=== PATIENT | male | born 1980 | race Caucasian/White ===

== ENCOUNTER 2017-04-23 23:26 | Emergency (ER) | payer SELFPAY ==
[~2017-04-23] VITALS: Ht 177.8 cm; Wt 75.0 kg
[~2017-04-23 23:26] MED LIST: BACTRIM DS1 TAB PO; DENIES CURRENT MEDS; DOXYCYCL HYC100 MG PO; FLEXERIL OR; KEFLEX500 M1 PO; LORTAB5 OR; NAPROSYN500 MG OR; NAPROXEN500 MG OR; NO; NO HOME MEDS; PERCOCET 5/325M1 TAB OR; PREVACID30 M1 PO; SILVADENE1 % EX; ULTRAM50 MG OR; VIBRAMYCIN100 M2 PO
[2017-04-24 00:05] LABS: HEMATOCRIT 43.6 % (39.0-50.0); HEMOGLOBIN 15.1 g/dl (14.0-18.0); IMMATURE GRANULOCYTES 0.3 % (0.0-1.0); MEAN CELL VOLUME 86.9 fL CALC (80.0-100.0); MEAN CORPUSCULAR HGB 30.1 pG CALC (26.0-32.0); MEAN CORPUSCULAR HGB CONC 34.6 g/L CALC (32.0-36.0); NEUT# 6.59 thou/uL (1.82-7.42); RED BLOOD COUNT 5.02 mill/uL (4.70-6.10); RED CELL DISTRI WIDTH 12.5 % (11.5-15.5)
[2017-04-24 00:45] LABS: ALKALINE PHOSPHATASE 79 u/l (38-126); ANION GAP 21 (6-22 (CALC)); BILIRUBIN, TOTAL 0.9 mg/dL (0.0-1.4); BUN 14 mg/dL (9-20); BUN/CREATININE RATIO 16 (12-20 (CALC)); CALCIUM 9.5 mg/dL (8.4-10.2); CARBON DIOXIDE 25 mmol/l (22-30); CHLORIDE 102 mmol/l (95-108); CREATININE 0.9 mg/dL (0.7-1.3); GFR > 60 ML/MIN (>=60 (CALC)); GFR FOR AFR.AMER. > 60 ML/MIN (>=60 (CALC)); GLUCOSE 86 mg/dL (75-110); POTASSIUM 3.9 mmol/l (3.5-5.1); SGOT/AST 43 u/l (17-59); SGPT/ALT 41 u/l (21-72); SODIUM 145 mmol/l (137-146); TOTAL PROTEIN 8.4 g/dL (6.3-8.2)
[2017-04-24 00:55] LABS: ETHYL ALCOHOL 428 mg/dl (0-30)
[2017-04-24 08:00] VITALS: BP 116/57
== END 2017-04-24 08:25 | disposition home or self-care (01) | DRG 605 ==
LOC: ED 23:26
PROVIDERS: Emergency Medicine
PROC: 0HQ0XZZ Repair Scalp Skin, External Approach (ICD-10-PCS; principal; 2017-04-23)
DX: S01.01XA Laceration without foreign body of scalp, initial encounter (principal); F10.129 Alcohol abuse with intoxication, unspecified; F17.210 Nicotine dependence, cigarettes, uncomplicated; F19.10 Other psychoactive substance abuse, uncomplicated; W19.XXXA Unspecified fall, initial encounter; Y92.410 Unspecified street and highway as the place of occurrence of the external cause

== ENCOUNTER 2018-04-05 18:31 | Emergency (ER) | payer SELFPAY ==
[~2018-04-05] VITALS: Ht 177.8 cm; Wt 68.2 kg
[2018-04-05] MEDS ORDERED: CLINDAMYCIN300 M1 PO (18:50)
[2018-04-05] MEDS ORDERED: MOTRIN800 MG PO (18:50)
[2018-04-05] MEDS ORDERED: TRAMADOL HCL50 MG PO (18:50)
[2018-04-05 18:59] VITALS: BP 148/105
== END 2018-04-05 19:06 | disposition home or self-care (01) | DRG 159 ==
LOC: ED 18:31
DX: K04.7 Periapical abscess without sinus (principal); K02.9 Dental caries, unspecified; F17.210 Nicotine dependence, cigarettes, uncomplicated

== ENCOUNTER 2018-11-03 03:42 | Emergency (ER) | payer SELFPAY ==
[~2018-11-03] VITALS: Ht 177.8 cm; Wt 68.0 kg
[~2018-11-03 03:42] MED LIST changes: +CLINDAMYCIN300 M1 PO; +MOTRIN800 MG PO; +TRAMADOL HCL50 MG PO
[2018-11-03 03:59] LABS: HEMATOCRIT 44.7 % (39.0-50.0); HEMOGLOBIN 14.5 g/dl (14.0-18.0); MEAN CORPUSCULAR HGB 31.7 pG CALC (26.0-32.0); MEAN CORPUSCULAR HGB CONC 32.4 g/L CALC (32.0-36.0); NEUT# 25.79 thou/uL (1.82-7.42); RED BLOOD COUNT 4.58 mill/uL (4.70-6.10)
[2018-11-03 04:01] LABS: MEAN CELL VOLUME 97.6 fL CALC (80.0-100.0)
[2018-11-03 04:11] LABS: ALKALINE PHOSPHATASE 109 u/l (38-126); ANION GAP 16 (6-22 (CALC)); BILIRUBIN, TOTAL 0.9 mg/dL (0.0-1.4); BUN 6 mg/dL (9-20); BUN/CREATININE RATIO 6 (12-20 (CALC)); CARBON DIOXIDE 23 mmol/l (22-30); CHLORIDE 109 mmol/l (95-108); CREATININE 0.9 mg/dL (0.7-1.3); GFR > 60 ML/MIN (>=60 (CALC)); GFR FOR AFR.AMER. > 60 ML/MIN (>=60 (CALC)); SODIUM 144 mmol/l (137-146); TOTAL PROTEIN 6.9 g/dL (6.3-8.2)
[2018-11-03 04:20] LABS: ALBUMIN 3.8 g/dL (3.2-5.0); ETHYL ALCOHOL 360 mg/dl (0-30); SGOT/AST 222 u/l (17-59)
[2018-11-03 04:23] LABS: URINE BILIRUBIN - DIPSTICK NEGATIVE (NEGATIVE); URINE BLOOD DIPSTICK LARGE (NEGATIVE); URINE COLOR YELLOW; URINE GLUCOSE - DIPSTICK 100 mg/dL (NEGATIVE); URINE KETONE NEGATIVE (NEGATIVE); URINE LEUK ESTERASE NEGATIVE (Negative); URINE NITRITE - DIPSTICK NEGATIVE (Negative); URINE PH 6.5 (4.5-8.0); URINE PROTEIN - DIPSTICK 100 mg/dL (NEG-TRACE)
[2018-11-03 04:24] LABS: URINE CLARITY CLOUDY
[2018-11-03 04:28] LABS: BARBITURATES NEGATIVE (NEGATIVE); COCAINE NEGATIVE (NEGATIVE); METHADONE NEGATIVE (NEGATIVE); OXCYCODONE NEGATIVE (NEGATIVE); TETRAHYDROCANNABIONOL NEGATIVE (NEGATIVE); TRICYLIC ANTIDEPRESSANTS NEGATIVE (NEGATIVE)
[2018-11-03 04:34] LABS: URINE BACTERIA FEW hpf; URINE SQUAMOUS EPITHELIAL CELL FEW EPI/hpf (0-FEW)
[2018-11-03 04:35] LABS: URINE AMORPH SEDIMENT FEW hpf (NONE-FER); URINE COARSE GRANULAR CAST FEW lpf; URINE FINE GRAN CAST MODERATE lpf
[2018-11-03 06:25] VITALS: BP 101/60
== END 2018-11-03 06:27 | DRG 84 ==
LOC: ED 03:42 → EDBD 03:55 → ED 03:55
PROVIDERS: Family Medicine
PROC: 0T9B70Z Drainage of Bladder with Drainage Device, Via Natural or Artificial Opening (ICD-10-PCS; principal; 2018-11-03)
PROC: 0BH17EZ Insertion of Endotracheal Airway into Trachea, Via Natural or Artificial Opening (ICD-10-PCS; 2018-11-03)
DX: S06.5X9A Traumatic subdural hemorrhage with loss of consciousness of unspecified duration, initial encounter (principal); S02.609A Fracture of mandible, unspecified, initial encounter for closed fracture; S02.2XXA Fracture of nasal bones, initial encounter for closed fracture; S02.32XA Fracture of orbital floor, left side, initial encounter for closed fracture; S02.82XA Fracture of other specified skull and facial bones, left side, initial encounter for closed fracture; S01.81XA Laceration without foreign body of other part of head, initial encounter; S61.212A Laceration without foreign body of right middle finger without damage to nail, initial encounter; Y04.8XXA Assault by other bodily force, initial encounter; X99.9XXA Assault by unspecified sharp object, initial encounter; Y92.414 Local residential or business street as the place of occurrence of the external cause; F10.120 Alcohol abuse with intoxication, uncomplicated; Y90.8 Blood alcohol level of 240 mg/100 ml or more

== ENCOUNTER 2019-01-03 20:35 | Emergency (ER) | payer MEDICAID ==
[~2019-01-03] VITALS: Ht 177.8 cm; Wt 69.0 kg
[2019-01-03 21:45] LABS: HEMATOCRIT 39.8 % (39.0-50.0); IMMATURE GRANULOCYTES 0.3 % (0.0-5.0); MEAN CORPUSCULAR HGB 29.1 pG CALC (26.0-32.0); MEAN CORPUSCULAR HGB CONC 32.7 g/L CALC (32.0-36.0); NEUT# 5.81 thou/uL (1.82-7.42); RED BLOOD COUNT 4.46 mill/uL (4.70-6.10); RED CELL DISTRI WIDTH 12.5 % (11.5-15.5)
[2019-01-03 21:47] LABS: MEAN CELL VOLUME 89.2 fL CALC (80.0-100.0)
[2019-01-03 21:57] LABS: ALBUMIN 4.5 g/dL (3.2-5.0); ALKALINE PHOSPHATASE 72 u/l (38-126); BUN 12 mg/dL (9-20); BUN/CREATININE RATIO 15 (12-20 (CALC)); CHLORIDE 103 mmol/l (95-108); CREATININE 0.8 mg/dL (0.7-1.3); ETHYL ALCOHOL 0 mg/dl (0-30); GFR > 60 ML/MIN (>=60 (CALC)); GFR FOR AFR.AMER. > 60 ML/MIN (>=60 (CALC)); POTASSIUM 4.3 mmol/l (3.5-5.1); SODIUM 140 mmol/l (137-146); TOTAL PROTEIN 7.5 g/dL (6.3-8.2)
[2019-01-03 21:59] LABS: ANION GAP 13 (6-22 (CALC)); BILIRUBIN, TOTAL 0.5 mg/dL (0.0-1.4); CARBON DIOXIDE 28 mmol/l (22-30); SGOT/AST 14 u/l (17-59)
[2019-01-03 22:17] LABS: URINE BILIRUBIN - DIPSTICK NEGATIVE (NEGATIVE); URINE BLOOD DIPSTICK NEGATIVE (NEGATIVE); URINE COLOR YELLOW; URINE GLUCOSE - DIPSTICK NEGATIVE (NEGATIVE); URINE KETONE NEGATIVE (NEGATIVE); URINE LEUK ESTERASE NEGATIVE (NEGATIVE); URINE NITRITE - DIPSTICK NEGATIVE (Negative); URINE PROTEIN - DIPSTICK NEGATIVE (NEG-TRACE); URINE UROBILINOGEN - DIPSTICK 0.2 E.U./dL (0.2)
[2019-01-03 22:22] LABS: BARBITURATES NEGATIVE (NEGATIVE); COCAINE NEGATIVE (NEGATIVE); METHADONE NEGATIVE (NEGATIVE); OXCYCODONE NEGATIVE (NEGATIVE); TETRAHYDROCANNABIONOL NEGATIVE (NEGATIVE); TRICYLIC ANTIDEPRESSANTS NEGATIVE (NEGATIVE)
[2019-01-03 23:20] VITALS: BP 118/72
== END 2019-01-03 23:20 | disposition designated cancer center or children's hospital (05) ==
LOC: ED 20:35
PROVIDERS: Emergency Medicine
DX: R45.851 Suicidal ideations (principal); F31.9 Bipolar disorder, unspecified; F17.210 Nicotine dependence, cigarettes, uncomplicated; G89.21 Chronic pain due to trauma; R51 Headache; Z91.5 Personal history of self-harm

== ENCOUNTER 2019-11-15 | Emergency (ER) | payer OTHER ==
[2019-11-15 02:04] LABS: HEMATOCRIT 47.8 % (39.0-50.0); HEMOGLOBIN 15.6 g/dl (14.0-18.0); IMMATURE GRANULOCYTES 0.3 % (0.0-5.0); MEAN CELL VOLUME 89.3 fL CALC (80.0-100.0); MEAN CORPUSCULAR HGB 29.2 pG CALC (26.0-32.0); MEAN CORPUSCULAR HGB CONC 32.6 g/dL CAL (32.0-36.0); NEUT# 8.02 thou/uL (1.82-7.42); RED BLOOD COUNT 5.35 mill/uL (4.70-6.10); RED CELL DISTRI WIDTH 15.7 % (11.5-15.5)
[2019-11-15 02:06] LABS: ALBUMIN 4.9 g/dL (3.2-5.0); ALKALINE PHOSPHATASE 94 u/l (38-126); ANION GAP 19 (6-22 (CALC)); BILIRUBIN, TOTAL 0.4 mg/dL (0.0-1.4); BUN 14 mg/dL (9-20); BUN/CREATININE RATIO 14 (12-20 (CALC)); CARBON DIOXIDE 23 mmol/l (22-30); CHLORIDE 106 mmol/l (95-108); GFR > 60 ML/MIN (>=60 (CALC)); GFR FOR AFR.AMER. > 60 ML/MIN (>=60 (CALC)); SODIUM 144 mmol/l (137-146); TOTAL PROTEIN 8.5 g/dL (6.3-8.2)
[2019-11-15 02:10] LABS: SGOT/AST 177 u/l (17-59)
[2019-11-15 02:17] LABS: ETHYL ALCOHOL 325 mg/dl (0-30)
[2019-11-15 07:48] LABS: URINE BILIRUBIN - DIPSTICK NEGATIVE (NEGATIVE); URINE BLOOD DIPSTICK NEGATIVE (NEGATIVE); URINE COLOR YELLOW; URINE GLUCOSE - DIPSTICK 250 mg/dL (NEGATIVE); URINE KETONE NEGATIVE (NEGATIVE); URINE LEUK ESTERASE NEGATIVE (NEGATIVE); URINE PROTEIN - DIPSTICK TRACE mg/dL (NEG-TRACE); URINE SPECIFIC GRAVITY >=1.030; URINE UROBILINOGEN - DIPSTICK 0.2 E.U./dL (0.2)
[2019-11-15 07:52] LABS: URINE NITRITE - DIPSTICK NEGATIVE (Negative)
[2019-11-15 07:57] LABS: BARBITURATES NEGATIVE (NEGATIVE); COCAINE NEGATIVE (NEGATIVE); METHADONE NEGATIVE (NEGATIVE); OXCYCODONE NEGATIVE (NEGATIVE); TETRAHYDROCANNABIONOL NEGATIVE (NEGATIVE); TRICYLIC ANTIDEPRESSANTS NEGATIVE (NEGATIVE)
== END 2019-11-15 09:10 ==
PROVIDERS: Family Medicine
DX: F10.129 Alcohol abuse with intoxication, unspecified (principal); R45.851 Suicidal ideations; F31.9 Bipolar disorder, unspecified
CPT/HCPCS: J2060

== ENCOUNTER 2020-03-13 21:51 | Emergency (ER) | payer OTHER ==
[~2020-03-13] VITALS: Ht 177.8 cm; Wt 68.0 kg
[2020-03-13 22:28] LABS: HEMATOCRIT 48.9 % (39.0-50.0); HEMOGLOBIN 15.5 g/dl (14.0-18.0); IMMATURE GRANULOCYTES 0.3 % (0.0-5.0); MEAN CELL VOLUME 94.6 fL CALC (80.0-100.0); MEAN CORPUSCULAR HGB CONC 31.7 g/dL CAL (32.0-36.0); NEUT# 2.77 thou/uL (1.82-7.42); RED BLOOD COUNT 5.17 mill/uL (4.70-6.10); RED CELL DISTRI WIDTH 14.5 % (11.5-15.5)
[2020-03-13 22:51] LABS: ALBUMIN 4.7 g/dL (3.2-5.0); ALKALINE PHOSPHATASE 88 u/l (38-126); BILIRUBIN, TOTAL 0.3 mg/dL (0.0-1.4); BUN 9 mg/dL (9-20); BUN/CREATININE RATIO 9 (12-20 (CALC)); CHLORIDE 105 mmol/l (95-108); CREATININE 0.9 mg/dL (0.7-1.3); GFR > 60 ML/MIN (>=60 (CALC)); GFR FOR AFR.AMER. > 60 ML/MIN (>=60 (CALC)); LIPASE 87 u/l (23-300); POTASSIUM 3.9 mmol/l (3.5-5.1); SGOT/AST 53 u/l (17-59); SODIUM 143 mmol/l (137-146); TOTAL PROTEIN 8.5 g/dL (6.3-8.2)
[2020-03-13 23:02] LABS: MYOGLOBIN 38 ng/mL (0 - 121)
[2020-03-13 23:04] LABS: ANION GAP 11 (6-22 (CALC)); CARBON DIOXIDE 31 mmol/l (22-30)
[2020-03-13 23:06] LABS: ETHYL ALCOHOL 374 mg/dl (0-30)
[2020-03-14 06:40] LABS: ETHYL ALCOHOL 205 mg/dl (0-30)
[2020-03-14 10:30] VITALS: BP 120/67
== END 2020-03-14 10:30 | disposition home or self-care (01) ==
LOC: ED 21:51
PROVIDERS: Emergency Medicine
DX: F10.129 Alcohol abuse with intoxication, unspecified (principal)

== ENCOUNTER 2022-06-18 06:18 | Emergency (ER) | payer OTHER ==
[2022-06-18] VITALS (14 sets, daily range): BP systolic 119–139; BP diastolic 88–100
[~2022-06-18] VITALS: Ht 177.8 cm; Wt 81.0 kg
[2022-06-18 07:05] LABS: HEMATOCRIT 47.5 % (39.0-50.0); IMMATURE GRANULOCYTES 0.2 % (0.0-5.0); MEAN CELL VOLUME 91.5 fL CALC (80.0-100.0); MEAN CORPUSCULAR HGB 30.8 pG CALC (26.0-32.0); MEAN CORPUSCULAR HGB CONC 33.7 g/dL CAL (32.0-36.0); NEUT# 6.98 thou/uL (1.82-7.42); RED BLOOD COUNT 5.19 mill/uL (4.70-6.10)
[2022-06-18 07:20] LABS: ALBUMIN 4.7 g/dL (3.2-5.0); ANION GAP 15 (6-22 (CALC)); BILIRUBIN, TOTAL 0.4 mg/dL (0.0-1.4); BUN 5 mg/dL (9-20); BUN/CREATININE RATIO 5 (12-20 (CALC)); CARBON DIOXIDE 29 mmol/l (22-30); CHLORIDE 105 mmol/l (95-108); CREATININE 0.9 mg/dL (0.7-1.3); GFR FOR AFR.AMER. > 60 ML/MIN (>=60 (CALC)); GFR OTHER RACES > 60 ML/MIN (>=60 (CALC)); POTASSIUM 3.9 mmol/l (3.5-5.1); SGOT/AST 47 u/l (17-59); SODIUM 146 mmol/l (137-146); TOTAL PROTEIN 8.2 g/dL (6.3-8.2)
[2022-06-18 07:22] LABS: ALKALINE PHOSPHATASE 156 u/l (38-126)
[2022-06-18 07:32] LABS: MYOGLOBIN 52 ng/mL (0 - 121)
[2022-06-18 09:03] LABS: URINE BILIRUBIN - DIPSTICK NEGATIVE (NEGATIVE); URINE BLOOD DIPSTICK NEGATIVE (NEGATIVE); URINE COLOR YELLOW; URINE GLUCOSE - DIPSTICK NEGATIVE (NEGATIVE); URINE KETONE NEGATIVE (NEGATIVE); URINE LEUK ESTERASE NEGATIVE (NEGATIVE); URINE PROTEIN - DIPSTICK NEGATIVE (NEG-TRACE); URINE UROBILINOGEN - DIPSTICK 0.2 E.U./dL (0.2)
[2022-06-18 09:14] LABS: URINE NITRITE - DIPSTICK NEGATIVE (Negative)
[2022-06-18] MEDS ORDERED: ONDANSETRON4 MG PO (09:34)
== END 2022-06-18 09:45 | disposition home or self-care (01) ==
LOC: ED 06:18
PROVIDERS: Emergency Medicine
DX: B34.9 Viral infection, unspecified (principal); F31.9 Bipolar disorder, unspecified; Z20.822 Contact with and (suspected) exposure to COVID-19

== ENCOUNTER 2022-08-26 19:01 | Emergency (ER) | payer OTHER ==
[~2022-08-26] VITALS: Ht 177.8 cm; Wt 71.6 kg
[~2022-08-26 19:01] MED LIST changes: +ONDANSETRON4 MG PO
[2022-08-26 20:28] VITALS: BP 145/109
[2022-08-26 20:30] VITALS: BP 158/109
[2022-08-26 20:45] VITALS: BP 152/105
[2022-08-26 21:00] VITALS: BP 124/87
[2022-08-26 21:06] LABS: BASO% 0.6 % (0-3); EOS% 0.7 % (0-8); HEMATOCRIT 47.7 % (39.0-50.0); HEMOGLOBIN 16.8 g/dl (14.0-18.0); IMMATURE GRANULOCYTES 0.3 % (0.0-5.0); LYMPH% 11.2 % (15-41); MEAN CELL VOLUME 90.3 fL CALC (80.0-100.0); MEAN CORPUSCULAR HGB 31.8 pG CALC (26.0-32.0); MEAN CORPUSCULAR HGB CONC 35.2 g/dL CAL (32.0-36.0); MONO% 6.7 % (2-13); NEUT# 8.69 thou/uL (1.82-7.42); NEUT% 80.5 % (42-76); RED BLOOD COUNT 5.28 mill/uL (4.70-6.10); RED CELL DISTRI WIDTH 18.3 % (11.5-15.5)
[2022-08-26 21:15] VITALS: BP 138/86
[2022-08-26 21:17] LABS: INTERNATIONAL NORMALIZED RATIO 1.2 RATIO (0.7-1.3); PROTHROMBIN TIME 11.5 SECONDS (9.0-12.5)
[2022-08-26 21:18] LABS: ALBUMIN 4.6 g/dL (3.2-5.0); BUN 8 mg/dL (9-20); BUN/CREATININE RATIO 11 (12-20 (CALC)); CARBON DIOXIDE 25 mmol/l (22-30); CHLORIDE 97 mmol/l (95-108); CPK 57 u/l (52-200); CREATININE 0.8 mg/dL (0.7-1.3); ETHYL ALCOHOL 0 mg/dl (0-30); GFR FOR AFR.AMER. > 60 ML/MIN (>=60 (CALC)); GFR OTHER RACES > 60 ML/MIN (>=60 (CALC)); LIPASE 126 u/l (23-300); POTASSIUM 3.8 mmol/l (3.5-5.1); TOTAL PROTEIN 8.2 g/dL (6.3-8.2)
[2022-08-26 21:21] LABS: ANION GAP 16 (6-22 (CALC)); SODIUM 134 mmol/l (137-146)
[2022-08-26 21:22] LABS: ALKALINE PHOSPHATASE 472 u/l (38-126); BILIRUBIN, TOTAL 21.2 mg/dL (0.0-1.4); MAGNESIUM 1.4 mg/dL (1.6-2.3); SGOT/AST 344 u/l (17-59)
[2022-08-27] VITALS (33 sets, daily range): BP systolic 129–169; BP diastolic 78–115
[2022-08-27 07:51] LABS: BASO% 0.6 % (0-3); EOS% 1.4 % (0-8); HEMATOCRIT 42.7 % (39.0-50.0); HEMOGLOBIN 15.1 g/dl (14.0-18.0); IMMATURE GRANULOCYTES 0.2 % (0.0-5.0); LYMPH% 20.2 % (15-41); MEAN CELL VOLUME 89.9 fL CALC (80.0-100.0); MEAN CORPUSCULAR HGB 31.8 pG CALC (26.0-32.0); MEAN CORPUSCULAR HGB CONC 35.4 g/dL CAL (32.0-36.0); MONO% 7.2 % (2-13); NEUT# 7.35 thou/uL (1.82-7.42); NEUT% 70.4 % (42-76); RED BLOOD COUNT 4.75 mill/uL (4.70-6.10)
[2022-08-27 08:14] LABS: ALBUMIN 3.8 g/dL (3.2-5.0); ALKALINE PHOSPHATASE 387 u/l (38-126); ANION GAP 10 (6-22 (CALC)); BUN 7 mg/dL (9-20); BUN/CREATININE RATIO 10 (12-20 (CALC)); CARBON DIOXIDE 29 mmol/l (22-30); CHLORIDE 102 mmol/l (95-108); CREATININE 0.7 mg/dL (0.7-1.3); GFR FOR AFR.AMER. > 60 ML/MIN (>=60 (CALC)); GFR OTHER RACES > 60 ML/MIN (>=60 (CALC)); POTASSIUM 3.5 mmol/l (3.5-5.1); SGOT/AST 282 u/l (17-59); SODIUM 137 mmol/l (137-146); TOTAL PROTEIN 7.1 g/dL (6.3-8.2)
[2022-08-27 08:16] LABS: BILIRUBIN, TOTAL 19.5 mg/dL (0.0-1.4)
== END 2022-08-27 10:25 | disposition short-term general hospital (02) ==
LOC: ED 19:01
PROVIDERS: Family Medicine
DX: K83.1 Obstruction of bile duct (principal); F31.9 Bipolar disorder, unspecified; F17.210 Nicotine dependence, cigarettes, uncomplicated
CPT/HCPCS: Q9967; S0164

== ENCOUNTER 2023-01-22 18:25 | Emergency (ER) | payer OTHER ==
[2023-01-22] VITALS (9 sets, daily range): BP systolic 132–154; BP diastolic 89–101
[~2023-01-22] VITALS: Ht 177.8 cm; Wt 68.0 kg
[2023-01-22 18:53] LABS: BASO% 0.5 % (0-3); EOS% 0.3 % (0-8); HEMATOCRIT 48.3 % (39.0-50.0); HEMOGLOBIN 15.8 g/dl (14.0-18.0); LYMPH% 20.5 % (15-41); MEAN CELL VOLUME 91.3 fL CALC (80.0-100.0); MEAN CORPUSCULAR HGB 29.9 pG CALC (26.0-32.0); MEAN CORPUSCULAR HGB CONC 32.7 g/dL CAL (32.0-36.0); MONO% 8.4 % (2-13); NEUT# 7.2 thou/uL (1.82-7.42); NEUT% 70.3 % (42-76); RED BLOOD COUNT 5.29 mill/uL (4.70-6.10); RED CELL DISTRI WIDTH 13.7 % (11.5-15.5)
[2023-01-22 19:04] LABS: ALBUMIN 4.5 g/dL (3.2-5.0); ALKALINE PHOSPHATASE 212 u/l (38-126); BUN 10 mg/dL (9-20); BUN/CREATININE RATIO 12 (12-20 (CALC)); CHLORIDE 101 mmol/l (95-108); CREATININE 0.8 mg/dL (0.7-1.3); ETHYL ALCOHOL 34 mg/dl (0-30); GFR FOR AFR.AMER. > 60 ML/MIN (>=60 (CALC)); GFR OTHER RACES > 60 ML/MIN (>=60 (CALC)); LIPASE 96 u/l (23-300); MAGNESIUM 1.6 mg/dL (1.6-2.3); POTASSIUM 3.5 mmol/l (3.5-5.1); SGOT/AST 112 u/l (17-59); SODIUM 136 mmol/l (137-146); TOTAL PROTEIN 8.2 g/dL (6.3-8.2)
[2023-01-22 19:05] LABS: ANION GAP 17 (6-22 (CALC)); BILIRUBIN, TOTAL 1.8 mg/dL (0.2-1.3); CARBON DIOXIDE 22 mmol/l (22-30)
[2023-01-22 19:11] LABS: D-DIMER 2.32 mg/L (0.19-0.60)
[2023-01-22 19:18] LABS: ACT PARTIAL THROMBO TIME 24.1 SECONDS (20.0-32.5); PROTHROMBIN TIME 10.3 SECONDS (9.0-12.5)
[2023-01-22 20:57] LABS: URINE BLOOD DIPSTICK NEGATIVE (NEGATIVE); URINE COLOR YELLOW; URINE GLUCOSE - DIPSTICK NEGATIVE (NEGATIVE); URINE KETONE 40 mg/dL (NEGATIVE); URINE LEUK ESTERASE NEGATIVE (NEGATIVE); URINE PROTEIN - DIPSTICK 100 mg/dL (NEG-TRACE); URINE SPECIFIC GRAVITY >=1.030
[2023-01-22 21:00] LABS: URINE BILIRUBIN - DIPSTICK SEE COMMNET (NEGATIVE); URINE NITRITE - DIPSTICK NEGATIVE (Negative)
[2023-01-22 21:05] LABS: URINE MUCUS FEW hpf (NONE-FEW); URINE RBC 0-2 RBC/hpf (0-5); URINE SQUAMOUS EPITHELIAL CELL FEW EPI/hpf (0-FEW)
== END 2023-01-22 21:50 | disposition home or self-care (01) ==
LOC: ED 18:25
PROVIDERS: Family Medicine
DX: R07.89 Other chest pain (principal); F10.10 Alcohol abuse, uncomplicated; Y90.1 Blood alcohol level of 20-39 mg/100 ml; F19.10 Other psychoactive substance abuse, uncomplicated; F31.9 Bipolar disorder, unspecified; F17.200 Nicotine dependence, unspecified, uncomplicated
CPT/HCPCS: J2060

== ENCOUNTER 2023-03-04 21:58 | Emergency (ER) | payer OTHER ==
[~2023-03-04] VITALS: Ht 177.8 cm; Wt 65.0 kg
[2023-03-04 22:06] VITALS: BP 122/87
[2023-03-04 22:30] VITALS: BP 117/82
[2023-03-04 22:34] LABS: EOS% 0.2 % (0-8); HEMATOCRIT 46.1 % (39.0-50.0); HEMOGLOBIN 14.3 g/dl (14.0-18.0); IMMATURE GRANULOCYTES 0.1 % (0.0-5.0); LYMPH% 12.2 % (15-41); MEAN CORPUSCULAR HGB 30.1 pG CALC (26.0-32.0); MONO% 5.6 % (2-13); NEUT# 7.26 thou/uL (1.82-7.42); NEUT% 80.9 % (42-76); RED BLOOD COUNT 4.75 mill/uL (4.70-6.10); RED CELL DISTRI WIDTH 14.3 % (11.5-15.5)
[2023-03-04 22:49] LABS: ALBUMIN 3.7 g/dL (3.2-5.0); BUN 17 mg/dL (9-20); BUN/CREATININE RATIO 20 (12-20 (CALC)); CARBON DIOXIDE 24 mmol/l (22-30); CHLORIDE 112 mmol/l (95-108); CREATININE 0.9 mg/dL (0.7-1.3); ETHYL ALCOHOL 282 mg/dl (0-30); GFR FOR AFR.AMER. > 60 ML/MIN (>=60 (CALC)); GFR OTHER RACES > 60 ML/MIN (>=60 (CALC)); SGOT/AST 50 u/l (17-59); TOTAL PROTEIN 6.8 g/dL (6.3-8.2)
[2023-03-04 22:50] LABS: ALKALINE PHOSPHATASE 91 u/l (38-126); ANION GAP 15 (6-22 (CALC)); BILIRUBIN, TOTAL 0.6 mg/dL (0.2-1.3); MEAN CELL VOLUME 97.1 fL CALC (80.0-100.0); SODIUM 147 mmol/l (137-146)
[2023-03-04 23:31] VITALS: BP 117/88
[2023-03-05] VITALS (16 sets, daily range): BP systolic 96–146; BP diastolic 56–92
[2023-03-05 03:54] LABS: URINE BILIRUBIN - DIPSTICK NEGATIVE (NEGATIVE); URINE BLOOD DIPSTICK NEGATIVE (NEGATIVE); URINE COLOR YELLOW; URINE GLUCOSE - DIPSTICK 500 mg/dL (NEGATIVE); URINE KETONE TRACE mg/dL (NEGATIVE); URINE LEUK ESTERASE NEGATIVE (NEGATIVE); URINE NITRITE - DIPSTICK NEGATIVE (Negative); URINE PH 5.5 (4.5-8.0); URINE PROTEIN - DIPSTICK TRACE mg/dL (NEG-TRACE); URINE SPECIFIC GRAVITY >=1.030
== END 2023-03-05 08:33 | disposition home or self-care (01) ==
LOC: ED 21:58
PROVIDERS: Family Medicine
DX: F10.129 Alcohol abuse with intoxication, unspecified (principal); Y90.8 Blood alcohol level of 240 mg/100 ml or more; F19.10 Other psychoactive substance abuse, uncomplicated; F31.9 Bipolar disorder, unspecified; F17.200 Nicotine dependence, unspecified, uncomplicated

== ENCOUNTER 2023-08-14 13:15 | Emergency (ER) | payer SELFPAY ==
[~2023-08-14] VITALS: Ht 177.8 cm; Wt 74.8 kg
[2023-08-14] VITALS (20 sets, daily range): BP systolic 112–134; BP diastolic 87–102
[2023-08-14 13:56] LABS: BASO% 0.6 % (0-3); IMMATURE GRANULOCYTES 0.2 % (0.0-5.0); LYMPH% 22.2 % (15-41); MEAN CELL VOLUME 92.8 fL CALC (80.0-100.0); MEAN CORPUSCULAR HGB 31.5 pG CALC (26.0-32.0); MEAN CORPUSCULAR HGB CONC 33.9 g/dL CAL (32.0-36.0); MONO% 8.7 % (2-13); NEUT# 4.3 thou/uL (1.82-7.42); NEUT% 68.3 % (42-76); RED BLOOD COUNT 5.43 mill/uL (4.70-6.10)
[2023-08-14 13:58] LABS: HEMATOCRIT 50.4 % (39.0-50.0); HEMOGLOBIN 17.1 g/dl (14.0-18.0)
[2023-08-14 14:09] LABS: ALBUMIN 4.4 g/dL (3.2-5.0); ALKALINE PHOSPHATASE 111 u/l (38-126); BILIRUBIN, TOTAL 0.6 mg/dL (0.2-1.3); BUN 13 mg/dL (9-20); BUN/CREATININE RATIO 16 (12-20 (CALC)); CARBON DIOXIDE 27 mmol/l (22-30); CHLORIDE 95 mmol/l (95-108); CREATININE 0.8 mg/dL (0.7-1.3); GFR FOR AFR.AMER. > 60 ML/MIN (>=60 (CALC)); GFR OTHER RACES > 60 ML/MIN (>=60 (CALC)); LIPASE 161 u/l (23-300); POTASSIUM 3.6 mmol/l (3.5-5.1); SGOT/AST 94 u/l (17-59); TOTAL PROTEIN 8.2 g/dL (6.3-8.2)
[2023-08-14 14:10] LABS: ANION GAP 16 (6-22 (CALC)); SODIUM 134 mmol/l (137-146)
[2023-08-14 14:58] LABS: URINE BLOOD DIPSTICK Trace-lysed (NEGATIVE); URINE GLUCOSE - DIPSTICK Negative (NEGATIVE); URINE KETONE 40 mg/dL (NEGATIVE); URINE LEUK ESTERASE Negative (NEGATIVE); URINE NITRITE - DIPSTICK Negative (Negative); URINE PROTEIN - DIPSTICK >=300 mg/dL (NEG-TRACE); URINE SPECIFIC GRAVITY 1.025
[2023-08-14 15:01] LABS: URINE COLOR Yellow
[2023-08-14 15:02] LABS: URINE RBC 0-2 RBC/hpf (0-5); URINE WBC 0-2 WBC/hpf (0-5)
[2023-08-14] MEDS ORDERED: LEVSIN0.125 M1 PO (16:09)
[2023-08-14] MEDS ORDERED: ZOFRAN4 MG/TAB PO (16:09)
== END 2023-08-14 17:56 | disposition home or self-care (01) | DRG 392 ==
LOC: ED 13:15
PROVIDERS: Family Medicine
DX: R10.11 Right upper quadrant pain (principal); R10.31 Right lower quadrant pain; R10.13 Epigastric pain; F31.9 Bipolar disorder, unspecified; F17.200 Nicotine dependence, unspecified, uncomplicated
CPT/HCPCS: Q9967

== ENCOUNTER 2024-02-10 02:09 | Emergency (ER) | payer SELFPAY ==
[~2024-02-10] VITALS: Ht 177.8 cm; Wt 68.0 kg
[~2024-02-10 02:09] MED LIST changes: +DICYCLOMINE HYD10 MG PO; +LEVSIN0.125 M1 PO; +NAPROXEN500 MG PO; +TRAMADOL HYDROC50 M1 PO; +ZOFRAN4 MG/TAB PO
[2024-02-10 02:20] VITALS: BP 114/79
[2024-02-10] MEDS ORDERED: MULTIPLE VITAMIN 10 ML,THIAMINE HCL 100 MG in SODIUM CHLORIDE 0.9% 1,000 ML IV ONE (02:35)
[2024-02-10 02:56] LABS: URINE BILIRUBIN - DIPSTICK Negative (NEGATIVE); URINE BLOOD DIPSTICK Negative (NEGATIVE); URINE GLUCOSE - DIPSTICK Negative (NEGATIVE); URINE KETONE Negative (NEGATIVE); URINE LEUK ESTERASE Negative (NEGATIVE); URINE NITRITE - DIPSTICK Negative (Negative); URINE PROTEIN - DIPSTICK Negative (NEG-TRACE); URINE SPECIFIC GRAVITY <=1.005; URINE UROBILINOGEN - DIPSTICK 0.2 E.U./dL (0.2)
[2024-02-10 02:57] LABS: URINE COLOR Yellow
[2024-02-10 03:00] VITALS: BP 132/91
[2024-02-10 03:14] LABS: EOS% 0.5 % (0-8); HEMATOCRIT 41.8 % (39.0-50.0); HEMOGLOBIN 14.1 g/dl (14.0-18.0); IMMATURE GRANULOCYTES 0.1 % (0.0-5.0); LYMPH% 47.9 % (15-41); MEAN CELL VOLUME 95.4 fL CALC (80.0-100.0); MEAN CORPUSCULAR HGB 32.2 pG CALC (26.0-32.0); MEAN CORPUSCULAR HGB CONC 33.7 g/dL CAL (32.0-36.0); NEUT# 4.45 thou/uL (1.82-7.42); NEUT% 45.5 % (42-76); RED BLOOD COUNT 4.38 mill/uL (4.70-6.10); RED CELL DISTRI WIDTH 14.1 % (11.5-15.5)
[2024-02-10 03:25] LABS: ALBUMIN 4.5 g/dL (3.2-5.0); ALKALINE PHOSPHATASE 91 u/l (38-126); ANION GAP 11 (6-22 (CALC)); BILIRUBIN, TOTAL 0.3 mg/dL (0.2-1.3); BUN 7 mg/dL (9-20); BUN/CREATININE RATIO 7 (12-20 (CALC)); CARBON DIOXIDE 32 mmol/l (22-30); CHLORIDE 108 mmol/l (95-108); ESTIMATED GFR 95 ML/MIN (>=90 (CALC)); MAGNESIUM 1.9 mg/dL (1.6-2.3); POTASSIUM 3.8 mmol/l (3.5-5.1); SGOT/AST 38 u/l (17-59); SODIUM 147 mmol/l (137-146); TOTAL PROTEIN 7.7 g/dL (6.3-8.2)
[2024-02-10 03:34] LABS: ETHYL ALCOHOL 362 mg/dl (0-30)
[2024-02-10 04:00] VITALS: BP 125/97
[2024-02-10 06:58] VITALS: BP 125/97
== END 2024-02-10 07:33 | disposition home or self-care (01) | DRG 897 ==
LOC: ED 02:09
PROVIDERS: Family Medicine
DX: F10.129 Alcohol abuse with intoxication, unspecified (principal); Y90.8 Blood alcohol level of 240 mg/100 ml or more; F31.9 Bipolar disorder, unspecified; F17.200 Nicotine dependence, unspecified, uncomplicated

== ENCOUNTER 2024-03-18 19:36 | Emergency (ER) | payer OTHER ==
[~2024-03-18] VITALS: Ht 177.8 cm; Wt 70.0 kg
[2024-03-18 20:25] LABS: BASO% 0.7 % (0-3); EOS% 0.6 % (0-8); HEMATOCRIT 43.8 % (39.0-50.0); HEMOGLOBIN 14.6 g/dl (14.0-18.0); IMMATURE GRANULOCYTES 0.1 % (0.0-5.0); LYMPH% 27.2 % (15-41); MEAN CELL VOLUME 96.1 fL CALC (80.0-100.0); MEAN CORPUSCULAR HGB CONC 33.3 g/dL CAL (32.0-36.0); NEUT# 7.33 thou/uL (1.82-7.42); NEUT% 67.4 % (42-76); RED BLOOD COUNT 4.56 mill/uL (4.70-6.10); RED CELL DISTRI WIDTH 13.3 % (11.5-15.5)
[2024-03-18 20:38] LABS: CREATININE 0.9 mg/dL (0.7-1.3); TOTAL PROTEIN 6.9 g/dL (6.3-8.2)
[2024-03-18 20:47] LABS: BILIRUBIN, TOTAL 0.5 mg/dL (0.2-1.3)
[2024-03-19 04:23] VITALS: BP 134/77
== END 2024-03-19 04:23 | DRG 897 ==
LOC: ED 19:36
PROVIDERS: Family Medicine
DX: F10.129 Alcohol abuse with intoxication, unspecified (principal); Y90.8 Blood alcohol level of 240 mg/100 ml or more; S00.81XA Abrasion of other part of head, initial encounter; F31.9 Bipolar disorder, unspecified; F17.200 Nicotine dependence, unspecified, uncomplicated; Y04.8XXA Assault by other bodily force, initial encounter

== ENCOUNTER 2024-04-28 01:24 | Emergency (ER) | payer SELFPAY ==
[~2024-04-28] VITALS: Ht 177.8 cm; Wt 67.0 kg
[2024-04-28 02:00] LABS: BASO% 0.8 % (0-3); EOS% 1.5 % (0-8); HEMATOCRIT 44.4 % (39.0-50.0); IMMATURE GRANULOCYTES 0.6 % (0.0-5.0); LYMPH% 25.7 % (15-41); MEAN CELL VOLUME 97.8 fL CALC (80.0-100.0); MEAN CORPUSCULAR HGB 30.8 pG CALC (26.0-32.0); MEAN CORPUSCULAR HGB CONC 31.5 g/dL CAL (32.0-36.0); MONO% 10.9 % (2-13); NEUT# 6.19 thou/uL (1.82-7.42); NEUT% 60.5 % (42-76); RED BLOOD COUNT 4.54 mill/uL (4.70-6.10); RED CELL DISTRI WIDTH 13.8 % (11.5-15.5)
[2024-04-28 02:13] LABS: ALBUMIN 3.7 g/dL (3.2-5.0); ALKALINE PHOSPHATASE 100 u/l (38-126); ANION GAP 8 (6-22 (CALC)); BILIRUBIN, TOTAL 0.6 mg/dL (0.2-1.3); BUN 11 mg/dL (9-20); BUN/CREATININE RATIO 11 (12-20 (CALC)); CARBON DIOXIDE 33 mmol/l (22-30); CHLORIDE 106 mmol/l (95-108); ESTIMATED GFR 95 ML/MIN (>=90 (CALC)); ETHYL ALCOHOL 0 mg/dl (0-30); MAGNESIUM 1.5 mg/dL (1.6-2.3); SGOT/AST 354 u/l (17-59); SODIUM 143 mmol/l (137-146); TOTAL PROTEIN 6.8 g/dL (6.3-8.2)
[2024-04-28 02:17] LABS: URINE BILIRUBIN - DIPSTICK Negative (NEGATIVE); URINE BLOOD DIPSTICK Negative (NEGATIVE); URINE GLUCOSE - DIPSTICK Negative (NEGATIVE); URINE KETONE Trace mg/dL (NEGATIVE); URINE LEUK ESTERASE Negative (NEGATIVE); URINE NITRITE - DIPSTICK Negative (Negative); URINE PROTEIN - DIPSTICK Negative (NEG-TRACE); URINE SPECIFIC GRAVITY 1.025
[2024-04-28 02:18] LABS: URINE COLOR Yellow
[2024-04-28 04:32] VITALS: BP 142/85
== END 2024-04-28 04:32 | DRG 951 ==
LOC: ED 01:24
PROVIDERS: Family Medicine
DX: R45.850 Homicidal ideations (principal); F31.9 Bipolar disorder, unspecified; F17.200 Nicotine dependence, unspecified, uncomplicated

== ENCOUNTER 2024-09-26 20:07 | Inpatient (IN) | payer SELFPAY ==
[~2024-09-26] VITALS: Ht 177.8 cm; Wt 63.8 kg
[2024-09-26] VITALS (8 sets, daily range): BP systolic 102–119; BP diastolic 66–83
[~2024-09-26 20:07] MED LIST changes: +IBUPROFEN600 MG PO
--- NOTE | 2024-09-26 20:15 | NUR ---
PT TO [facility] VIA [facility]
[2024-09-26] MEDS ORDERED: SODIUM CHLORIDE 0.9% 1,000 ML IV ONE (20:20)
[2024-09-26 21:14] LABS: BASO% 0.6 % (0-3); EOS% 2.5 % (0-8); HEMATOCRIT 42.2 % (39.0-50.0); HEMOGLOBIN 13.8 g/dl (14.0-18.0); IMMATURE GRANULOCYTES 0.1 % (0.0-5.0); LYMPH% 36.3 % (15-41); MEAN CELL VOLUME 97.5 fL CALC (80.0-100.0); MEAN CORPUSCULAR HGB 31.9 pG CALC (26.0-32.0); MEAN CORPUSCULAR HGB CONC 32.7 g/dL CAL (32.0-36.0); MONO% 4.7 % (2-13); NEUT# 5.25 thou/uL (1.82-7.42); NEUT% 55.8 % (42-76); RED BLOOD COUNT 4.33 mill/uL (4.70-6.10); RED CELL DISTRI WIDTH 13.2 % (11.5-15.5)
--- NOTE | 2024-09-26 21:15 | NUR ---
PT RESTING IN BED W/ EYES CLOSED. AROUSABLE. ON PHYSIOTHERAPY PRACTICE MANAGER AND PULSE OX.
[2024-09-26 21:26] LABS: ALBUMIN 4.4 g/dL (3.2-5.0); BILIRUBIN, TOTAL 0.4 mg/dL (0.2-1.3); CREATININE 0.9 mg/dL (0.7-1.3); POTASSIUM 3.5 mmol/l (3.5-5.1); TOTAL PROTEIN 7.3 g/dL (6.3-8.2)
--- NOTE | 2024-09-26 22:05 | NUR ---
PT CONTINUES RESTING IN BED W/ NO DISTRESS. VSS.
--- NOTE | 2024-09-26 23:15 | NUR ---
PT CONTINUES RESTING IN BED W/ NO DISTRESS. VSS. AROUSABLE
[2024-09-27] VITALS (10 sets, daily range): BP systolic 110–139; BP diastolic 78–97
[2024-09-27] MEDS ORDERED: SODIUM CHLORIDE 0.9% 1,000 ML IV ONE (00:05)
--- NOTE | 2024-09-27 00:30 | NUR ---
Reassessment of patient completed. No distress noted.
--- NOTE | 2024-09-27 01:00 | NUR ---
900 ML YELLOW URINE OUT
--- NOTE | 2024-09-27 02:02 | NUR ---
REPORT GIVEN TO NANCY TOLENTINO [facility]
--- NOTE | 2024-09-27 02:10 | NUR ---
Patient arrived to the unit via wheelchair accompained by ED RN. Patient is AOx4. Patient is wearing dirty street clothes. RN offered a gown and clean supplies. Patient refused. Patient request for water and snacks, which was given. VS on admission was within parameters. Patient complaining of headache. No PRN at this time. Provider will be paged. Bed alarm on. Patient educated on fall prevention and verbalizes understanding
--- NOTE | 2024-09-27 02:13 | NUR ---
PT TRASNPORTED TO [facility] VIA WHEELCHAIR IN STABLE CONDITION
[2024-09-27] MEDS ORDERED: ACETAMINOPHEN 325 MG/TAB PO PRN (03:10)
--- NOTE | 2024-09-27 04:00 | NUR ---
Order for a tylenol received and given to the patient. Patient has no other complains at this time. No change in reassessment
[2024-09-27] MEDS ORDERED: chlordiazePOXIDE HCL 25 MG CAP PO PRN (10:05)
[2024-09-27] MEDS ORDERED: LACTATED RINGER'S 1,000 ML IV PRN (10:05)
[2024-09-27] MEDS ORDERED: MIDAZOLAM HCL 2 MG/2 ML VIAL IV PRN (10:10)
[2024-09-27] MEDS ORDERED: MULTIPLE VITAMIN 10 ML,THIAMINE HCL 100 MG in SODIUM CHLORIDE 0.9% 1,000 ML IV SCH (11:00)
--- NOTE | 2024-09-27 14:46 | NUR ---
PT RESTING COMFORTABLY AT THIS TIME, CIWA NOTED AT A 3 FOR TERMORS AND A MILD HEADACHE.
--- NOTE | 2024-09-27 20:00 | NUR ---
Report received from [facility]. Patient is now on [facility] protocol. RN at bedside. Patient is AOx4. Denies halluciations, nausea. Reports mild headache. IV fluids running at 100ml/hr. Patient request snacks and drink, which was provided.
--- NOTE | 2024-09-28 00:30 | NUR ---
RN walk pass patient's room and hear patient talking. Upon loft worker head ask who he was talking with and patient reply "I do not know". CIWA score is 15. Patient medicated. IV fluids started
[2024-09-28 04:26] VITALS: BP 119/81
--- NOTE | 2024-09-28 04:46 | NUR ---
Patient awake. CIWA score 5. Patient report improvement of symptoms.
[2024-09-28 05:30] LABS: BASO% 0.5 % (0-3); EOS% 1.9 % (0-8); HEMATOCRIT 40.3 % (39.0-50.0); HEMOGLOBIN 13.3 g/dl (14.0-18.0); IMMATURE GRANULOCYTES 0.1 % (0.0-5.0); LYMPH% 19.5 % (15-41); MEAN CELL VOLUME 99.8 fL CALC (80.0-100.0); MEAN CORPUSCULAR HGB 32.9 pG CALC (26.0-32.0); MONO% 7.9 % (2-13); NEUT# 10.52 thou/uL (1.82-7.42); NEUT% 70.1 % (42-76); RED BLOOD COUNT 4.04 mill/uL (4.70-6.10); RED CELL DISTRI WIDTH 12.9 % (11.5-15.5)
[2024-09-28 05:37] LABS: CREATININE 0.7 mg/dL (0.7-1.3); MAGNESIUM 1.8 mg/dL (1.6-2.3); POTASSIUM 3.7 mmol/l (3.5-5.1); TOTAL PROTEIN 6.1 g/dL (6.3-8.2)
[2024-09-28 05:47] LABS: ALBUMIN 3.4 g/dL (3.2-5.0); BILIRUBIN, TOTAL 0.8 mg/dL (0.2-1.3)
[2024-09-28 06:18] VITALS: BP 128/87
[2024-09-28 07:26] VITALS: BP 128/87
--- NOTE | 2024-09-28 08:15 | NUR ---
PATIENT IN BED RESTING NO C/O PAIN IS A&O X4
[2024-09-28] MEDS ORDERED: SODIUM CHLORIDE 0.9% 0 ML IV ONE (08:44)
--- NOTE | 2024-09-28 11:48 | NUR ---
PATIENT RESTING IN BED NO C/O PAIN AT THIS TIME IV TX TOLERATED WELL
[2024-09-28] MEDS ORDERED: VANCOMYCIN HCL 1 GM in SODIUM CHLORIDE 0.9% 250 ML IV SCH (12:40)
[2024-09-28] MEDS ORDERED: Levofloxacin 750 mg Premix 150 ML IV SCH (13:00)
[2024-09-28] MEDS ORDERED: chlordiazePOXIDE HCL 25 MG CAP PO SCH (13:30)
[2024-09-28 15:29] VITALS: BP 137/90
--- NOTE | 2024-09-28 15:57 | NUR ---
PATIENT IN BED NO C/O PAIN RESTING TOLERATING IV TX WELL. GAVE MILK AND CRACKERS
[2024-09-28 16:36] VITALS: BP 137/90
--- NOTE | 2024-09-28 18:21 | NUR ---
PATIENT TED CATALAN MD NOTIFIED.
== END 2024-09-28 18:29 | disposition left against medical advice (07) | DRG 894 ==
LOC: ED 20:07 → MS2 09-27 00:06 → ED-I 09-27 00:14 → MS2 09-27 16:02
PROVIDERS: Family Medicine; Nurse Practitioner Family; ADMIT Internal Medicine; ATTEND Internal Medicine
DX: F10.139 Alcohol abuse with withdrawal, unspecified (principal); Z59.00 Homelessness unspecified; F10.129 Alcohol abuse with intoxication, unspecified; Y90.8 Blood alcohol level of 240 mg/100 ml or more; F19.10 Other psychoactive substance abuse, uncomplicated; F31.9 Bipolar disorder, unspecified; D72.829 Elevated white blood cell count, unspecified; Z88.0 Allergy status to penicillin
CPT/HCPCS: J1836; J3411

== ENCOUNTER 2024-10-16 17:08 | Emergency (ER) | payer SELFPAY ==
[~2024-10-16] VITALS: Ht 177.8 cm; Wt 80.0 kg
[2024-10-16 18:43] VITALS: BP 124/62
== END 2024-10-16 18:20 | disposition home or self-care (01) | DRG 951 ==
LOC: ED 17:08
DX: Z04.89 Encounter for examination and observation for other specified reasons (principal); F10.10 Alcohol abuse, uncomplicated; G40.909 Epilepsy, unspecified, not intractable, without status epilepticus; F31.9 Bipolar disorder, unspecified; F17.200 Nicotine dependence, unspecified, uncomplicated

== ENCOUNTER 2024-11-07 05:34 | Emergency (ER) | payer SELFPAY ==
[~2024-11-07] VITALS: Ht 177.8 cm; Wt 62.0 kg
[2024-11-07] MEDS ORDERED: SULFAMETHOXAZOLE W/TRIMETHOPRI 1 COMBO TAB PO ONE (05:50)
[2024-11-07] MEDS ORDERED: BACTRIM DS1 TAB PO (05:50)
[2024-11-07 05:57] VITALS: BP 152/94
[2024-11-09] MEDS ORDERED: DOXYCYCLINE HY100 MG PO (10:05)
== END 2024-11-07 06:10 | disposition home or self-care (01) | DRG 603 ==
LOC: ED 05:34
DX: L02.423 Furuncle of right upper limb (principal); Z59.00 Homelessness unspecified; B95.62 Methicillin resistant Staphylococcus aureus infection as the cause of diseases classified elsewhere; G40.909 Epilepsy, unspecified, not intractable, without status epilepticus; F31.9 Bipolar disorder, unspecified; F17.200 Nicotine dependence, unspecified, uncomplicated; Z86.14 Personal history of Methicillin resistant Staphylococcus aureus infection

== ENCOUNTER 2024-11-13 22:06 | Emergency (ER) | payer SELFPAY ==
[~2024-11-13] VITALS: Ht 177.8 cm; Wt 79.0 kg
[~2024-11-13 22:06] MED LIST changes: +DOXYCYCLINE HY100 MG PO
[2024-11-13 22:33] LABS: BASO% 0.8 % (0-3); EOS% 1.5 % (0-8); HEMATOCRIT 41.8 % (39.0-50.0); IMMATURE GRANULOCYTES 0.1 % (0.0-5.0); LYMPH% 34.5 % (15-41); MEAN CELL VOLUME 97.7 fL CALC (80.0-100.0); MEAN CORPUSCULAR HGB 32.7 pG CALC (26.0-32.0); MEAN CORPUSCULAR HGB CONC 33.5 g/dL CAL (32.0-36.0); MONO% 4.9 % (2-13); NEUT# 6.79 thou/uL (1.82-7.42); NEUT% 58.2 % (42-76); RED BLOOD COUNT 4.28 mill/uL (4.70-6.10)
[2024-11-13 22:48] LABS: ALKALINE PHOSPHATASE 70 u/l (38-126); ANION GAP 13 (6-22 (CALC)); BILIRUBIN, TOTAL 0.5 mg/dL (0.2-1.3); BUN 12 mg/dL (9-20); BUN/CREATININE RATIO 17 (12-20 (CALC)); CARBON DIOXIDE 28 mmol/l (22-30); CHLORIDE 104 mmol/l (95-108); CPK 170 u/l (55-170); CREATININE 0.7 mg/dL (0.7-1.3); ESTIMATED GFR 116 ML/MIN (>=90 (CALC)); LIPASE 86 u/l (23-300); MAGNESIUM 2.1 mg/dL (1.6-2.3); POTASSIUM 3.4 mmol/l (3.5-5.1); SGOT/AST 32 u/l (17-59); SODIUM 141 mmol/l (137-146)
[2024-11-13 22:49] LABS: ALBUMIN 4.2 g/dL (3.2-5.0); TOTAL PROTEIN 7.5 g/dL (6.3-8.2)
[2024-11-13 22:50] LABS: URINE BILIRUBIN - DIPSTICK Negative (NEGATIVE); URINE BLOOD DIPSTICK Negative (NEGATIVE); URINE GLUCOSE - DIPSTICK Negative (NEGATIVE); URINE KETONE Negative (NEGATIVE); URINE LEUK ESTERASE Negative (NEGATIVE); URINE NITRITE - DIPSTICK Negative (Negative); URINE PROTEIN - DIPSTICK Negative (NEG-TRACE); URINE SPECIFIC GRAVITY <=1.005; URINE UROBILINOGEN - DIPSTICK 0.2 E.U./dL (0.2)
[2024-11-13 23:00] LABS: URINE COLOR Yellow
[2024-11-13 23:08] LABS: ETHYL ALCOHOL 359 mg/dl (0-30)
[2024-11-13] MEDS ORDERED: MAGNESIUM OXIDE 400 MG/TAB PO ONE (23:30)
[2024-11-13] MEDS ORDERED: POTASSIUM CHLORIDE 20 MEQ/TAB PO ONE (23:30)
[2024-11-14] MEDS ORDERED: HALOPERIDOL LACTATE 5 MG/ML SDV IM ONE (02:30)
[2024-11-14] MEDS ORDERED: LORazepam 2 MG/ML IV ONE (02:30)
[2024-11-14 09:34] VITALS: BP 106/71
== END 2024-11-14 09:43 | disposition left against medical advice (07) | DRG 894 ==
LOC: ED 22:06
PROVIDERS: Internal Medicine
DX: F10.129 Alcohol abuse with intoxication, unspecified (principal); Y90.8 Blood alcohol level of 240 mg/100 ml or more; M54.2 Cervicalgia; G40.909 Epilepsy, unspecified, not intractable, without status epilepticus; F31.9 Bipolar disorder, unspecified; F17.200 Nicotine dependence, unspecified, uncomplicated; S09.90XA Unspecified injury of head, initial encounter; X58.XXXA Exposure to other specified factors, initial encounter; Z53.29 Procedure and treatment not carried out because of patient's decision for other reasons
CPT/HCPCS: J1630; J2060